=== PATIENT | female | born 1945 | race Caucasian/White ===

== ENCOUNTER 2022-11-04 09:49 | Outpatient (OUT) | payer MEDICARE, SELFPAY ==
--- NOTE | 2022-11-04 | ECG_ITS ---
The [facility] Test Date: 2022-11-04 Pat Name: CATHERINE MCNULTY Department: Room: - Gender: Female [employer] Helper: : 1945 Requested By: MERVIN DURAND Order Number: [id number] Reading MD: LUZ SCHAEFFER Measurements Intervals [place] Rate: 104 P: 43 NH: 133 QRS: 7 QRSD: 93 T: 30 QT: 299 QTc: 395 Interpretive Statements SINUS TACHYCARDIA LOW QRS VOLTAGE IN PRECORDIAL LEADS [QRS DEFLECTION < 1.0 mV IN CHEST LEADS] Baseline artifact present No previous ECG available for comparison Electronically Signed On 11-05-2022 7:13:09 EDT by LUZ SCHAEFFER
--- NOTE | 2022-11-04 09:52 | XR_ITS ---
The [address] [address] Patient Name: CATHERINE MCNULTY MRN: [id number] date: 1945 Sex: F Assigned Patient Location: CARD Current Patient Location: CARD Accession/Order Number: [id number] Exam Date: 11/04/2022 10:00 Report Date: 11/04/2022 10:16 At the request of: MERVIN DURAND Procedure: XR chest 2V PROCEDURE: XR chest 2V DATE: 11/04/2022 9:00 AM CDT COMPARISONS: None. CLINICAL INDICATION: 77 years Female Dyspnea R06.09 FINDINGS: There is opacification of the mid and lower lung field. Much of this likely represents pleural fluid with associated compressive atelectasis. This could obscure other abnormalities of the mid and lower left lung field. The right lung field is clear. No definite right pleural effusion seen. No evidence of pneumothorax. There is limitation in evaluating the mediastinum and cardiac silhouette due to the opacification of the left lung field. XR/XR chest 2V IMPRESSION: 1. No previous images for comparison 2. Findings most consistent with large left pleural effusion and associated compressive atelectasis. CT of the chest should be considered to further evaluate the left chest and to help determine the etiology of this fluid. Electronically authenticated by: MELECIO HEADLEY Date: 11/04/2022 10:16
== END 2022-11-04 09:50 | disposition home or self-care (01) ==
LOC: CARD 09:49
PROVIDERS: PCP Nurse Practitioner Primary Care; Visit Provider Nurse Practitioner Primary Care
DX: R06.09 Other forms of dyspnea (principal); R53.83 Other fatigue
CPT/HCPCS: 71046; 93005